=== PATIENT | female | born 1945 | race Caucasian/White ===

== ENCOUNTER 2021-02-15 06:23 | Inpatient (IN) ==
[2021-02-15] MEDS ORDERED: SODIUM CHLORIDE 0.9% 1,000 ML IV STA ×2 (07:02→09:33)
[2021-02-15] MEDS ORDERED: ACETAMINOPHEN 500 MG TABLET ONE (07:03)
[2021-02-15 07:31] LABS: ABG Base Excess -0.2 MMOL/L (-2.5-2.5); ABG HCO3 24.3 MMOL/L (20-26); ABG Oxygen Saturation 98.2 % (95-100); ABG PCO2 41.3 MM HG (35-48); ABG PH 7.388 (7.35-7.45)
[2021-02-15] MEDS ORDERED: ACETAMINOPHEN 500 MG TABLET PO STA (08:08)
[2021-02-15 08:12] LABS: Hematocrit 39.9 VOL% (35.7-47.0); Hemoglobin 12.5 GM/DL (12.0-16.0); Immature Granulocytes % 0.3 %; Immature Granulocytes Absolute 0.02 #; Lymphocytes # 0.6 10*3/uL (1.4-4.0); Lymphocytes % 9.9 % (21.3-54.2); Mean Corpuscular HGB Conc 31.3 GM/DL (32-36); Mean Corpuscular Volume 84.7 FL (87-102); Neutrophils % 86.8 % (38.7-73.9); Platelet Count 192 T/CUMM (130-400); Red Blood Count 4.71 MC/CUMM (3.8-5.5); Red Cell Distribution Width 13.9 % (9.3-17.3); White Blood Count 5.9 T/CUMM (4-12)
[2021-02-15 08:19] LABS: Bacteria,Urine Many /HPF (Few); Bilirubin,Urine Negative (Negative); Blood, Urine Negative (Negative); Glucose,Urine (UA) Negative (Negative); Ketones,Urine Negative (Negative); Mucus,Urine Occasional /LPF (Occasional); Nitrite,Urine Negative (Negative); Protein,Urine Negative; RBC,Urine 2 /HPF (0-4); Squamous Epithelial Cell,Urine Few /HPF (0-10); Urine Appearance CLEAR (Clear); Urine Color Yellow (Yellow); Urine Specific Gravity 1.008 (1.001-1.035); Urine Urobilinogen < 2.0 EU/DL (0.2-1.0)
[2021-02-15 08:25] LABS: PT Patient Result 10.8 SECS (10.5-12.0); Partial Thromboplastin Time 24.2 SECS (23.9-33.8)
[2021-02-15 08:31] LABS: Barbiturates Screen,Urine Negative (Negative); Benzodiazepines Screen,Urine Positive (Negative); Cannabinoid Screen,Urine Negative (Negative); Opiate Screen,Urine Negative (Negative); Phencyclidine Screen,Urine Negative (Negative)
[2021-02-15 08:33] LABS: Albumin 3.6 G/DL (3.4-5.0); Bilirubin,Total 0.6 MG/DL (0.20-1.00); Calcium 9.2 MG/DL (8.5-10.1); Potassium 4.1 MMOL/L (3.5-5.1); Total Protein 7.8 G/DL (6.4-8.2)
[2021-02-15] MEDS ORDERED: PIPERACILLIN/TAZOBACTAM 3,375 MG in SODIUM CHLORIDE 0.9% 100 ML IV STA (08:36)
[2021-02-15] MEDS ORDERED: ACETAMINOPHEN 325 MG TABLET PO PRN (10:07)
[2021-02-15] MEDS ORDERED: GLUCAGON 1 MG VIAL IM PRN (10:07)
[2021-02-15] MEDS ORDERED: DEXTROSE 50% 25 GM/50 ML VIAL IV PRN (10:07)
[2021-02-15] MEDS ORDERED: ONDANSETRON 4 MG/2 ML VIAL IV PRN (10:07)
[2021-02-15] MEDS: AZITHROMYCIN INJ 500 MG in SODIUM CHLORIDE 0.9% 250 ML IV SCH (10:45)
[2021-02-15] MEDS: HEPARIN 5,000 UNIT/1 ML VIAL SUBCUT SCH ×2 (11:00→22:39)
[2021-02-15] MEDS: SODIUM CHLORIDE 0.9% 1,000 ML IV SCH (11:00)
[2021-02-15] MEDS: cefTRIAXone 1,000 MG in SODIUM CHLORIDE 0.9% 100 ML IV SCH (11:00)
[2021-02-15] MEDS: ALBUTEROL/IPRATROPIUM 3 ML NEB RESP TX SCH ×2 (15:20→19:16)
[2021-02-16] MEDS: ALBUTEROL/IPRATROPIUM 3 ML NEB RESP TX SCH ×4 (00:36→19:50)
[2021-02-16] MEDS: SODIUM CHLORIDE 0.9% 1,000 ML IV SCH (05:54)
[2021-02-16 06:04] LABS: Calcium 7.7 MG/DL (8.5-10.1); Osmolality,Calculated 279.3 MOS/KG (273-304); Potassium 4.2 MMOL/L (3.5-5.1)
[2021-02-16 07:06] LABS: Basophils % 0.3 % (0.0-0.8); Hematocrit 29.6 VOL% (35.7-47.0); Immature Granulocytes % 0.5 %; Immature Granulocytes Absolute 0.04 #; Lymphocytes # 1.8 10*3/uL (1.4-4.0); Lymphocytes % 22.8 % (21.3-54.2); Mean Corpuscular HGB Conc 30.4 GM/DL (32-36); Mean Platelet Volume 10.3 FL (9.6-12.0); Monocytes % 4.1 % (1.7-12.7); Neutrophils % 72.3 % (38.7-73.9); Platelet Count 157 T/CUMM (130-400); Red Cell Distribution Width 14.5 % (9.3-17.3)
[2021-02-16 07:11] LABS: Red Blood Count 3.44 MC/CUMM (3.8-5.5); White Blood Count 7.8 T/CUMM (4-12)
[2021-02-16] MEDS: HEPARIN 5,000 UNIT/1 ML VIAL SUBCUT SCH ×2 (09:01→21:43)
[2021-02-16] MEDS: AZITHROMYCIN INJ 500 MG in SODIUM CHLORIDE 0.9% 250 ML IV SCH (09:37)
[2021-02-16] MEDS: cefTRIAXone 1,000 MG in SODIUM CHLORIDE 0.9% 100 ML IV SCH (09:37)
[2021-02-16] MEDS ORDERED: ALBUTEROL 2.5 MG/3 ML NEB RESP TX PRN (10:18)
[2021-02-17] MEDS: ALBUTEROL/IPRATROPIUM 3 ML NEB RESP TX SCH ×2 (00:30→07:20)
[2021-02-17] MEDS: SODIUM CHLORIDE 0.9% 1,000 ML IV SCH (01:54)
[2021-02-17 06:23] LABS: Basophils % 0.2 % (0.0-0.8); Hemoglobin 9.2 GM/DL (12.0-16.0); Immature Granulocytes % 0.2 %; Immature Granulocytes Absolute 0.01 #; Lymphocytes % 21.3 % (21.3-54.2); Mean Corpuscular HGB Conc 31.7 GM/DL (32-36); Mean Corpuscular Volume 84.3 FL (87-102); Mean Platelet Volume 10.1 FL (9.6-12.0); Monocytes % 7.1 % (1.7-12.7); Neutrophils % 71.2 % (38.7-73.9); Platelet Count 154 T/CUMM (130-400); Red Blood Count 3.44 MC/CUMM (3.8-5.5); Red Cell Distribution Width 14.6 % (9.3-17.3); White Blood Count 4.5 T/CUMM (4-12)
[2021-02-17 06:46] LABS: Calcium 8.4 MG/DL (8.5-10.1); Osmolality,Calculated 273.7 MOS/KG (273-304)
[2021-02-17] MEDS: cefTRIAXone 1,000 MG in SODIUM CHLORIDE 0.9% 100 ML IV SCH (09:38)
[2021-02-17] MEDS: HEPARIN 5,000 UNIT/1 ML VIAL SUBCUT SCH (09:39)
[2021-02-17] MEDS: AZITHROMYCIN INJ 500 MG in SODIUM CHLORIDE 0.9% 250 ML IV SCH (10:26)
[2021-02-17 11:26] VITALS: BP 131/82
== END 2021-02-17 12:48 | disposition home or self-care (01) | DRG 871 ==
LOC: N.ED 06:23 → N.EDINP 10:07 → SUATTDRO 10:07 → N.5E 12:03
PROVIDERS: ADMIT Internal Medicine; ATTEND Internal Medicine